=== PATIENT | female | born 1975 | race Caucasian/White ===

== ENCOUNTER 2017-02-04 11:30 | Outpatient (CLI) | payer OTHER ==
[~2017-02-04] VITALS: Ht 162.6 cm; Wt 65.8 kg
[2017-02-04] MEDS ORDERED: PANT40TA2 PO (11:37)
[2017-02-04] MEDS ORDERED: SUCR1TAB36 PO (11:37)
== END 2017-02-04 13:01 ==
LOC: PREOP 11:30
PROVIDERS: ATTEND Surgery
DX: Z01.818 Encounter for other preprocedural examination (principal); R10.13 Epigastric pain; R11.10 Vomiting, unspecified

== ENCOUNTER 2017-02-08 09:33 | Day surgery (SDC) | payer OTHER ==
[~2017-02-08] VITALS: Ht 162.6 cm; Wt 65.8 kg
[~2017-02-08 09:33] MED LIST: PANT40TA2 PO; SUCR1TAB36 PO
[2017-02-08] MEDS ORDERED: NS IV 500 ML 500 ML IV ONE (09:45)
[2017-02-08] MEDS ORDERED: NS IV 500 ML 500 ML ONE (09:55)
--- NOTE | 2017-02-08 10:01 | History & Physicial ---
History of Present Illness History of Present Illness Reason for visit/HPI to undergo an upper endoscopy regarding epigastric pain and vomiting. Date of Admission Date Seen by Provider: Feb 08, 2017 Time Seen by Provider: 09:59 I consulted on this patient on 02/08/17 09:59 Attending Physician Alexx Ferreira MD Admitting Physician Delfino Morales MD Consult Allergies and Home Medications Allergies Coded Allergies: Sulfa (Sulfonamide Antibiotics) (Verified Allergy, Unknown, ANAPHYLAXIS, ) promethazine (Verified Adverse Reaction, Unknown, 02/08/17) Home Medications Pantoprazole Sodium 40 Mg Tablet.dr, 40 MG PO DAILY, (Reported) Sucralfate 1 Gm Tablet, 1 GM PO ACHS, (Reported) Past Ygcebcl-Jcrhdt-Jjfokg Hx Patient Social History Marrital Status: Employed/Student: employed Smoking Status: Never a Smoker Recent Foreign Travel: No Contact w/other who traveled: No Recent Hopitalizations: No Seasonal Allergies Seasonal Allergies: Yes Surgeries HX Surgeries: Yes Surgeries: Tubal Ligation Respiratory Hx Respiratory Disorders: No Cardiovascular Hx Cardiovascular Disorders: No Neurological Hx Neurological Disorders: No Reproductive System Hx Reproductive Disorders: No Sexually Transmitted Disease: No Genitourinary Hx Genitourinary Disorders: No Gastrointestinal Hx Gastrointestinal Disorders: Yes (n/v) Gastrointestinal Disorders: Gastroesophageal Reflux Musculoskeletal Hx Musculoskeletal Disorders: No Endocrine Hx Endocrine Disorders: No HEENT HX ENT Disorders: No Cancer Hx Cancer: No Psychosocial Hx Psychiatric Problems: No Integumentary HX Skin/Integumentary Disorder: No Blood Transfusions Hx Blood Disorders: No Constitutional: no symptoms reported EENTM: no symptoms reported Respiratory: no symptoms reported Cardiovascular: no symptoms reported Gastrointestinal: abdominal pain (RUQ), nausea, vomiting Genitourinary: no symptoms reported Musculoskeletal: no symptoms reported Skin: no symptoms reported Psychiatric/Neurological: No Symptoms Reported Physical Exam Vital Signs Capillary Refill : General Appearance: No Apparent Distress HEENT: Normal ENT Inspection Neck: Normal Inspection Respiratory: Lungs Clear Cardiovascular: Regular Rate, Rhythm Gastrointestinal: Non Tender, Soft Extremity: Normal Inspection Neurologic/Psychiatric: Alert, Oriented x3 Skin: Warm/Dry Assessment/Plan Assessment and Plan lady with epigastric pain. Gastritis versus peptic ulcers. Upper endoscopy reasonable and will proceed. Problems: ALEXX FERREIRA MD Feb 08, 2017 10:01 am
--- NOTE | 2017-02-08 10:01 | Conscious Sedation/ASA ---
Conscious Sedation Pre-Proced Time Reviewed: 10:01 ASA Class: 2 Airway Mallampati Classification: ([place] appropriate class) I. II. III, IV Lungs Heart ASA score ASA 1: a normal healthy patient ASA 2: a patient with a mild systemic disease (mid diabetes, controlled hypertension, obesity ASA 3: a patient with a severe systemic disease that limits activity (angina , COPD, prior Myocardial infarction) ASA 4: a patient with an incapacitating disease that is a constant threat to life (CHF, renal failure) ASA 5: a moribund patient not expected to survive 24 hrs. (ruptured aneurysm) ASA 6: a declared brain patient whose organs are being harvested. For emergent operations, add the letter E after the classification Grade 1 Sedation Plan: Discussed options with patient/fam Note The patient is an appropriate candidate to undergo the planned procedure, sedation, and anesthesia. The patient immediately re-assessed prior to indication. ALEXX FERREIRA MD Feb 08, 2017 10:01 am
[2017-02-08 10:15] VITALS: BP 110/81
[2017-02-08] MEDS ORDERED: HURRICAINE EXT TUBE (BENZOCAINE) ONE (10:32)
[2017-02-08] MEDS ORDERED: fentaNYL INJECTION 100 MCG/2 ML AMP ONE (10:32)
[2017-02-08] MEDS ORDERED: MIDAZOLAM 2 MG/2 ML (VERSED) VIAL ONE ×4 (10:32)
[2017-02-08] MEDS: fentaNYL INJECTION 100 MCG/2 ML AMP IVP PRN ×2 (10:39→10:41)
[2017-02-08] MEDS: MIDAZOLAM 2 MG/2 ML (VERSED) VIAL IVP PRN ×3 (10:40→10:44)
--- NOTE | 2017-02-08 10:56 | Endo Procedure Record ---
Endo Procedure Report Date of Procedure Feb 08, 2017 Surgeon (s) ALEXX FERREIRA MD Post Procedure/Op Diagnosis 1.esophageal stricture 2. Multiple gastric ulcers Procedure Performed EGD with antral biopsy Balloon dilatation of esophageal stricture Description of Procedure Anesthesia Type: Conscious Sedation Specimen(s) collected/removed antral mucosa Description of the Procedure Indication for procedure:This lady came in for an upper endoscopy to evaluate ongoing symptoms of reflux with epigastric pain and intermittent dysphagia.informed consent was obtained after reviewing the procedure in detail. Description of the procedure:She was placed in left lateral decubitus position and her vital signs were monitored. Conscious sedation was achieved using Versed and fentanyl. The flexible gastroscope was then introduced down the esophagus, past the stomach, into the proximal duodenum. Findings: 1. Esophagus: Concentric, peptic stricture at the distal end with a short hiatal hernia. The stricture was dilated to 20 mm with the balloon 2. Multiple chronic gastric ulcers. These occupied the distal end of the stomach along the greater curvature and the antrum. Biopsy for H. pylori was obtained. 3. Duodenum: normal She tolerated the procedure well and was taken back to the nursing area in a stable condition. Impression: Symptoms of reflux disease. Peptic esophageal stricture and gastric ulcers. Balloon dilatation completed. Helicobacter status pending. Copies To: MEJIA ELLIS MD, XAVIER M MD Feb 08, 2017 10:56 am
--- NOTE | 2017-02-08 10:58 | Discharge Inst-Simple/Standard ---
Discharge Inst-Standard Discharge Medications New, Converted or Re-Newed RX: Other Patient Instructions/Follow Up Plan of Care/Instructions/FU: to increase Protonix to twice a day. Please schedule a gallbladder ultrasound as an outpatient. Activity as Tolerated: Yes Discharge Diet: No Restrictions ALEXX FERREIRA MD Feb 08, 2017 10:58 am
[2017-02-08] MEDS ORDERED: HURRICAINE EXT TUBE (BENZOCAINE) XX ONE (11:00)
[2017-02-08 11:20] VITALS: BP 100/64
[2017-02-08 11:50] VITALS: BP 104/82
[2017-02-08 12:30] VITALS: BP 104/82
== END 2017-02-08 12:30 | disposition home or self-care (01) ==
LOC: ENDO 09:33
PROVIDERS: ATTEND Surgery
DX: K22.2 Esophageal obstruction (principal); K25.9 Gastric ulcer, unspecified as acute or chronic, without hemorrhage or perforation; K44.9 Diaphragmatic hernia without obstruction or gangrene; K21.9 Gastro-esophageal reflux disease without esophagitis
CPT/HCPCS: 84703

== ENCOUNTER → 2017-02-15 | Outpatient (CLI) | payer OTHER ==
--- NOTE | 2017-02-15 08:34 | Diagnostic Imaging Report ---
PROCEDURE: US Gallbladder. TECHNIQUE: Multiple real-time grayscale images were obtained over the right upper quadrant in various projections. INDICATION: Abdominal pain COMPARISON: None FINDINGS: There is a 3.4 cm septated cyst in the right lobe of the liver and there is a 2.5 cm cyst in left lobe of the liver. No solid hepatic masses are suspected. The common bile duct is not seen, however, no gross biliary dilatation is suspected. Gallbladder appears unremarkable. The pancreas is not well demonstrated. The right kidney measures 13 cm in length and appears normal. There is no ascites or sonographic Gonzalez sign. IMPRESSION: 1. Hepatic cysts 2. No additional abnormality is seen. Limited visualization of the common bile duct and pancreas. Dictated by: Dictated on workstation # [id number]
== END ==
LOC: RAD 07:00
PROVIDERS: ATTEND Surgery
DX: R10.11 Right upper quadrant pain (principal); K76.89 Other specified diseases of liver
CPT/HCPCS: 76705

== ENCOUNTER 2017-03-19 12:27 | Observation (INO) | payer OTHER ==
[~2017-03-19] VITALS: Ht 162.6 cm; Wt 69.5 kg
[2017-03-19] MEDS ORDERED: IBUPROFEN 800 MG (MOTRIN) TAB PO ONE (13:00)
--- NOTE | 2017-03-19 13:05 | ED General ---
General Chief Complaint: General Problems/Pain Stated Complaint: SWOLLEN LYMPH GLANDS/YUEN/JAW PAIN Nursing Triage Note: PT STATES SHE STARTED FEELING BAD LAST SAT. COMPLAINS OF NECK AND LOWER POST HEAD PAIN WITH ENLARGED LYMPH NODES. SEEN [facility] ON WEDNESDAY AND HAD A NEG MON AND STREP. CALLED 'S OFFICE TODAY WHO TOLD HER TO GO TO THE ER. 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 Starting last week she had swelling to the lymph nodes on the bottom side of her chin. This was followed by a terribly sore throat and painful swallowing. She saw Dr. Ellis yesterday who did a rapid strep test and a monotest both of which were negative. Patient's fevers continued to be up to 103, complains of headache, posterior neck pain, sore throat, "lungs hurt" nonproductive cough, "kidneys hurt". She called Dr. Ellis today who referred her to the emergency room. Timing/Duration: 1 Week Severity: Moderate Associated Systoms: Cough, Fever/Chills, Headaches, Malaise, No Nausea/Vomiting , Weakness Allergies and Home Medications Allergies Coded Allergies: Sulfa (Sulfonamide Antibiotics) (Verified Allergy, Unknown, ANAPHYLAXIS, ) promethazine (Verified Adverse Reaction, Unknown, 03/19/17) Home Medications Hydrocodone/Acetaminophen 1 Each Tablet, 1 TAB PO Q4H PRN for PAIN-MODERATE, # 15 Ref 0 Prescribed by: GABRIEL GOMEZ on 03/21/17 1052 Pantoprazole Sodium 40 Mg Tablet., 40 MG PO DAILY, (Reported) Constitutional: see HPI, chills, fever, malaise EENTM: see HPI, throat pain Respiratory: see HPI, cough Cardiovascular: no symptoms reported Genitourinary: no symptoms reported Musculoskeletal: no symptoms reported Skin: no symptoms reported Psychiatric/Neurological: No Symptoms Reported Past Mhmfckm-Clxhdg-Iisowj Hx Patient Social History Alcohol Use: Occasionally Uses Recreational Drug Use: No Smoking Status: Never a Smoker Recent Foreign Travel: No Contact w/Someone Who Travel: No Recent Infectious Disease Expo: No Recent Hopitalizations: No Seasonal Allergies Seasonal Allergies: Yes Surgeries History of Surgeries: Yes Surgeries: Tubal Ligation Respiratory History of Respiratory Disorde: No Cardiovascular History of Cardiac Disorders: No Neurological History of Neurological Disord: No Reproductive System Hx Reproductive Disorders: No Sexually Transmitted Disease: No Genitourinary History of Genitourinary Disor: No Gastrointestinal Gastrointestinal Disorders: Gastroesophageal Reflux, Ulcer Musculoskeletal History of Musculoskeletal Dis: No Endocrine History of Endocrine Disorders: No HEENT History of HEENT Disorders: No Cancer History of Cancer: No Psychosocial History of Psychiatric Problem: No Integumentary History of Skin or Integumenta: No Blood Transfusions History of Blood Disorders: No Physical Exam Vital Signs Vital Sign - Last 12Hours 03/19/17 03/19/17 12:46 16:45 Temp 101.3 Pulse 121 Resp 18 B/P (MAP) 130/89 Pulse Ox 97 O2 Delivery Room Air Capillary Refill : Less Than 3 Seconds General Appearance: No Apparent Distress, WD/WN Eyes: Bilateral Eye Normal Inspection, Bilateral Eye PERRL, Bilateral Eye EOMI HEENT: PERRL/EOMI, TMs Normal, No Tonsillar Exudate, Other (tympanic membranes are normal in appearance. However there is significant erythema of the oropharynx.) Neck: Full Range of Motion, Normal Inspection, Lymphadenopathy (L), Lymphadenopathy (R) Respiratory: Lungs Clear, Normal Breath Sounds, No Accessory Muscle Use, No Respiratory Distress Cardiovascular: Regular Rate, Rhythm, Normal Peripheral Pulses Gastrointestinal: Normal Bowel Sounds, Non Tender, Soft Extremity: Normal Capillary Refill, Normal Inspection Neurologic/Psychiatric: Alert, Oriented x3, No Motor/Sensory Deficits, Other ( nuchal rigidity) Skin: Normal Color, Warm/Dry Comments She does not request pain medication but does appear to be uncomfortable. Focused Exam Evaluation Lactate Level Laboratory Tests 03/19/17 13:50: Lactic Acid Level 0.84 Lactic Acid Level Progress/Results/Core Measures Results/Orders Lab Results Laboratory Tests Test 03/21/17 05:15 Range/Units White Blood Count 7.7 4.3-11.0 10^3/uL Red Blood Count 3.53 L 4.35-5.85 10^6/uL Hemoglobin 10.0 L 11.5-16.0 G/DL Hematocrit 31 L 35-52 % Mean Corpuscular Volume 88 80-99 FL Mean Corpuscular Hemoglobin 28 25-34 PG Mean Corpuscular Hemoglobin Concent 32 32-36 G/DL Red Cell Distribution Width 13.5 10.0-14.5 % Platelet Count 290 130-400 10^3/uL Mean Platelet Volume 10.2 7.4-10.4 FL Sodium Level 141 135-145 MMOL/L Potassium Level 4.1 3.6-5.0 MMOL/L Chloride Level 112 H 98-107 MMOL/L Carbon Dioxide Level 20 L 21-32 MMOL/L Anion Gap 9 5-14 MMOL/L Blood Urea Nitrogen 4 L 7-18 MG/DL Creatinine 0.63 0.60-1.30 MG/DL Estimat Glomerular Filtration Rate > 60 BUN/Creatinine Ratio 6 Glucose Level 100 70-105 MG/DL Calcium Level 8.5 8.5-10.1 MG/DL Total Bilirubin 0.1 0.1-1.0 MG/DL Aspartate Amino Transf (AST/SGOT) 27 5-34 U/L Alanine Aminotransferase (ALT/SGPT) 53 0-55 U/L Alkaline Phosphatase 75 40-136 U/L Total Protein 6.2 L 6.4-8.2 GM/DL Albumin 3.1 L 3.2-4.5 GM/DL Micro Results My Orders Medications Given in ED Vital Signs/I&O Blood Pressure Mean: 103 Diagnostic Imaging Diagonstic Imaging: CT Comments NAME: [facility] REC#: [id number] PT STATUS: REG ER : 1975 PHYSICIAN: CHRISTIANNE SCHROEDER APRN ADMIT DATE: 03/19/17/ER Draft Date of Exam:03/19/17 CT HEAD WO PROCEDURE: CT head without contrast. TECHNIQUE: Multiple contiguous axial images were obtained through the brain without the use of intravenous contrast. INDICATION: Headache. FINDINGS: Noncontrasted images show the ventricles and cortical gyral pattern to be normal. There is no intracranial hemorrhage. No mass effect or extra-axial fluid collection. Basal cisterns are clear. CP angles appear normal. Mastoid air cells are well-aerated and clear. Paranasal sinuses are clear. No bony lesion. IMPRESSION: Normal CT scan of the head without contrast. Dictated on workstation # [id number] Dict: 03/19/17 1417 Trans: 03/19/17 1422 [facility] [id number] Interpreted by: BETSY GILLIAM MD Electronically signed by: Departure Communication (Admissions) Time/Spoke to Admitting Phy: 17:05 Communication I discussed the case with Dr. Gomez. She most graciously agrees to admit the patient, repeat labs in the morning and discharged to home if labs are stable. This is the patient's preference. Progress Notes 1603--Abner Rangel [employer] here and has collected CSF which was clear, opening pressure [id number] Impression Impression: Primary Impression: Pharyngitis Additional Impressions: Lymphadenopathy Headache Disposition: ADMITTED INPATIENT Condition: Stable Admissions Decision to Admit Reason: Admit from ER (General) Decision to Admit/Date: Mar 19, 2017 Time/Decision to Admit Time: 16:50 Departure-Patient Inst. Decision time for Depature: 16:36 Referrals: MEJIA ELLIS MD (PCP/Family) Primary Care Physician Patient Instructions: Sore Throat in Adults Scripts Hydrocodone/Acetaminophen (Hydrocodon -Acetaminophen 5-325) 1 Each Tablet 1 TAB PO Q4H Y for PAIN-MODERATE, #15 TAB 0 Refills Prov: GABRIEL GOMEZ MD 03/21/17 CHRISTIANNE SCHROEDER APRN Mar 19, 2017 13:05
[2017-03-19] MEDS ORDERED: NS IV 1000 ML 1,000 ML IV SCH (13:15)
[2017-03-19 13:45] LABS: BILIRUBIN,URINE NEGATIVE (NEGATIVE); KETONES,URINE NEGATIVE (NEGATIVE); LEUKOCYTE ESTERASE ,URINE 3+ (NEGATIVE); NITRITE,URINE NEGATIVE (NEGATIVE); PH,URINE 7 (5-9); PROTEIN,URINE 2+ (NEGATIVE); UROBILINOGEN,URINE 8 MG/DL (NORMAL)
[2017-03-19] MEDS ORDERED: fentaNYL INJECTION 100 MCG/2 ML AMP IVP ONE (13:45)
[2017-03-19 13:53] LABS: SQUAMOUS EPITHELIAL CELL,UR 25-50 /HPF
[2017-03-19 14:01] LABS: BASOPHILS % (AUTO) 0 % (0-10); EOSINOPHILS % (AUTO) 0 % (0-10); LYMPHOCYTES # (AUTO) 1.1 X 10^3 (1.0-4.0); LYMPHOCYTES % (AUTO) 10 % (12-44); MEAN CORPUSCULAR HEMOGLOBIN 29 PG (25-34); MEAN CORPUSCULAR HGB CONC 33 G/DL (32-36); MEAN CORPUSCULAR VOLUME 87 FL (80-99); MONOCYTES % (AUTO) 9 % (0-12); NEUTROPHILS # (AUTO) 8.5 X 10^3 (1.8-7.8); NEUTROPHILS % (AUTO) 81 % (42-75); PLATELET COUNT 250 10^3/uL (130-400); RED BLOOD COUNT 3.68 10^6/uL (4.35-5.85); RED CELL DISTRIBUTION WIDTH 13.3 % (10.0-14.5); WHITE BLOOD COUNT 10.6 10^3/uL (4.3-11.0)
--- NOTE | 2017-03-19 14:22 | Diagnostic Imaging Report ---
PROCEDURE: CT head without contrast. TECHNIQUE: Multiple contiguous axial images were obtained through the brain without the use of intravenous contrast. INDICATION: Headache. FINDINGS: Noncontrasted images show the ventricles and cortical gyral pattern to be normal. There is no intracranial hemorrhage. No mass effect or extra-axial fluid collection. Basal cisterns are clear. CP angles appear normal. Mastoid air cells are well-aerated and clear. Paranasal sinuses are clear. No bony lesion. IMPRESSION: Normal CT scan of the head without contrast. Dictated by: Dictated on workstation # [id number]
[2017-03-19 14:27] LABS: ERYTHROCYTE SEDIMENTATION RATE 81 MM/HR (0-20)
[2017-03-19] MEDS ORDERED: morphine INJ 10 MG/ML 1ML (SYR OR VIAL) IVP ONE ×2 (14:45→16:15)
[2017-03-19 15:00] LABS: ALANINE AMINOTRANSFERASE 56 U/L (0-55); ALBUMIN 3.4 GM/DL (3.2-4.5); ANION GAP 12 MMOL/L (5-14); ASPARTATE AMINO TRANSFERASE 33 U/L (5-34); BILIRUBIN,TOTAL 0.4 MG/DL (0.1-1.0); BLOOD UREA NITROGEN 6 MG/DL (7-18); BUN/CREATININE RATIO 10; CALCIUM 8.3 MG/DL (8.5-10.1); CARBON DIOXIDE 17 MMOL/L (21-32); CHLORIDE 109 MMOL/L (98-107); CREATININE SERUM 0.62 MG/DL (0.60-1.30); GFR ESTIMATED > 60; GLUCOSE 95 MG/DL (70-105); POTASSIUM 3.2 MMOL/L (3.6-5.0); SODIUM 138 MMOL/L (135-145); TOTAL PROTEIN 6.9 GM/DL (6.4-8.2)
--- NOTE | 2017-03-19 16:11 | Anesthesia-Procedure Note ---
Procedure Start/Stop Time Date of Procedure: Mar 19, 2017 Start Time: 15:40 Stop Time: 16:00 Postprocedural Diagnosis: headache Procedures/Interventions Discussed Risk,Benefits: Yes Patient Consents: Yes Position: Lying, Left Sterile Technique: Yes Opening Pressure: 21 Fluid Color: clear Spinal Needle Used: 22g Calderon 3 1/2 inch Procedure Notes subarachnoid space id'd with positive clear csf return x 1 attempt. opening pressure 21. specimen collected. pt tolerated procedure well CLEMENTINA HENRIQUEZ CRNA Mar 19, 2017 16:11
[2017-03-19 16:33] LABS: APPEARANCE,CSF CLEAR; COLOR,CSF COLORLESS; WHITE BLOOD CELL,CSF 1 CELLS (0-5)
[2017-03-19 16:41] LABS: CSF GLUCOSE 62 MG/DL (50-80); CSF TOTAL PROTEIN 22 MG/DL (15-40)
[2017-03-19] MEDS ORDERED: cefTRIAXone INJECTION 1,000 MG in NS (IVPB) 50 ML IV ONE (16:45)
[2017-03-19] MEDS ORDERED: DEXAMETHASONE PF 10 MG/ML (DECADRON) VIAL IV ONE (17:00)
--- NOTE | 2017-03-19 17:25 | Diagnostic Imaging Report ---
CLINICAL INDICATION: Patient with cough and fever x2 days. EXAMINATION: Chest x-ray PA and lateral views. COMPARISONS: None. FINDINGS: Lungs/pleura: There is mild discoid atelectasis in right midlung field. There is mild patchy airspace opacities in left lung base, which may represent atelectasis versus infiltrate. Otherwise, lungs are clear. There is no pneumothorax. There is no pleural effusion. Mediastinum: Unremarkable. Pulmonary vasculature: Unremarkable. Heart: Unremarkable. Bones/extrathoracic soft tissue: Unremarkable. IMPRESSION: 1: There is mild patchy airspace opacity in left lung base which likely represents atelectasis, but underlying infiltrate cannot be completely excluded. 2: Mild discoid atelectasis in right midlung field. Dictated by: Dictated on workstation # [id number]
[2017-03-19] MEDS ORDERED: DEXAMETHASONE 10 MG/ML (DECADRON) 1 ML VIAL ONE (17:32)
[2017-03-19] MEDS ORDERED: DEXAMETHASONE 10 MG/ML (DECADRON) 1 ML VIAL IV ONE (17:45)
[2017-03-19 17:50] VITALS: BP 102/67
[2017-03-19] MEDS ORDERED: IBUPROFEN 600 MG (MOTRIN) TAB PO PRN (18:30)
[2017-03-19] MEDS ORDERED: ONDANSETRON 4 MG/2 ML (SDV) Z0FRAN IVP PRN (18:30)
[2017-03-19] MEDS ORDERED: NS W/KCL 40 MEQ/L 1,000 ML IV SCH (18:30)
[2017-03-19] MEDS ORDERED: ACETAMINOPHEN 500 MG TAB (TYLENOL) PO PRN (18:30)
[2017-03-19] MEDS ORDERED: HYDROcodone/APAP 5 MG/325 MG (LORTAB) TAB PO PRN (18:45)
[2017-03-19] MEDS ORDERED: ONDANSETRON 4 MG/2 ML (SDV) Z0FRAN IV PRN (19:00)
[2017-03-19 19:50] VITALS: BP 108/71
[2017-03-19] MEDS: NS W/KCL 40 MEQ/L 1,000 ML IV SCH (20:09)
[2017-03-19] MEDS: HYDROcodone/APAP 5 MG/325 MG (LORTAB) TAB PO PRN (20:11)
[2017-03-19] MEDS: ACETAMINOPHEN 325 MG TABLET/CAPLET (TYLENOL) PO PRN (20:12)
[2017-03-20] VITALS: BP 88/61
[2017-03-20] MEDS: ACETAMINOPHEN 325 MG TABLET/CAPLET (TYLENOL) PO PRN (03:25)
[2017-03-20] MEDS: NS W/KCL 40 MEQ/L 1,000 ML IV SCH ×3 (03:26→20:47)
[2017-03-20 04:00] VITALS: BP 92/62
[2017-03-20 07:45] LABS: MEAN PLATELET VOLUME 10.1 FL (7.4-10.4); RED BLOOD COUNT 3.92 10^6/uL (4.35-5.85); RED CELL DISTRIBUTION WIDTH 13.3 % (10.0-14.5); WHITE BLOOD COUNT 8.4 10^3/uL (4.3-11.0)
[2017-03-20 08:00] VITALS: BP 84/54
[2017-03-20 08:03] LABS: ALANINE AMINOTRANSFERASE 56 U/L (0-55); ALBUMIN 3.4 GM/DL (3.2-4.5); ANION GAP 6 MMOL/L (5-14); ASPARTATE AMINO TRANSFERASE 27 U/L (5-34); BILIRUBIN,TOTAL 0.3 MG/DL (0.1-1.0); BLOOD UREA NITROGEN 5 MG/DL (7-18); BUN/CREATININE RATIO 8; CALCIUM 8.8 MG/DL (8.5-10.1); CARBON DIOXIDE 20 MMOL/L (21-32); CHLORIDE 113 MMOL/L (98-107); CREATININE SERUM 0.59 MG/DL (0.60-1.30); GFR ESTIMATED > 60; GLUCOSE 153 MG/DL (70-105); POTASSIUM 4.4 MMOL/L (3.6-5.0); SODIUM 139 MMOL/L (135-145); TOTAL PROTEIN 6.9 GM/DL (6.4-8.2)
[2017-03-20] MEDS: cefTRIAXone INJECTION 1,000 MG in NS (IVPB) 50 ML IV SCH (08:37)
[2017-03-20] MEDS: HYDROcodone/APAP 5 MG/325 MG (LORTAB) TAB PO PRN ×4 (09:12→22:36)
[2017-03-20] MEDS: IBUPROFEN 600 MG (MOTRIN) TAB PO PRN ×2 (10:44→18:19)
--- NOTE | 2017-03-20 11:18 | Diagnostic Imaging Report ---
PROCEDURE: CT neck soft tissue without contrast. TECHNIQUE: Multiple contiguous axial images were obtained through the neck without the use of intravenous contrast. INDICATION: Neck swelling. Sore throat. COMPARISON: None. FINDINGS: Prominent palatine and adenoid tonsils with calcifications consistent with chronic inflammation. Prominent soft tissue at the base of the tongue likely represents enlarged lingual tonsils. The pharyngeal and laryngeal soft tissues are otherwise symmetric. Nonspecific low attenuation subcentimeter nodule in the right thyroid lobe. The major salivary glands are unremarkable. Diffusely prominent but subcentimeter lymph nodes throughout the neck. The left jugulodigastric lymph node measures up to 1.1 cm short axis dimension, borderline enlarged. No evidence of necrotic lymphadenopathy. No mass or fluid collection in the neck on this noncontrast exam. The visualized intracranial contents and skull base are negative. The paranasal sinuses and mastoids are clear where seen. Osseous structures are unremarkable. IMPRESSION: 1. Prominent Waldeyer's ring with calcifications consistent with chronic inflammation. 2. Diffuse prominence of the cervical lymph nodes, without oswaldo lymphadenopathy or evidence of necrotic lymph nodes, are likely reactive. 3. No mass or fluid collection in the neck on this noncontrast exam. Dictated by: Dictated on workstation # [id number]
[2017-03-20 12:00] VITALS: BP 111/76
--- NOTE | 2017-03-20 13:53 | History & Physicial ([facility]) ---
HPI History of Present Illness: 41 yo female presented to ED with several days of illness. She was not feeling well on Wednesday (5 days ago) and noted swollen submandibular glands and had night sweats that night. Wednesday she had a severe occipital headache with photophobia and nausea which has persisted. She also has severe sore throat and has not eaten solid food since Wednesday. She saw Dr. Morales in clinic on and had negative strep screen and mono screen, but she continued to have high fever up to 103 and severe pain which brought her to the ER. Date seen by provider: Mar 20, 2017 Time Seen by Provider: 08:15 Attending Physician Delfino Morales MD PCP Delfino Morales MD Consult Date of Admission Mar 19, 2017 at 5:22 pm Home Medications Home Medications Reviewed patient Home Medication Reconciliation Form Allergies Coded Allergies: Sulfa (Sulfonamide Antibiotics) (Verified Allergy, Unknown, ANAPHYLAXIS, ) promethazine (Verified Adverse Reaction, Unknown, 03/19/17) [id number]-Ovrmhb Hx Patient Social History Alcohol Use: Occasionally Uses Recreational Drug Use: No Smoking Status: Never a Smoker Recent Foreign Travel: No Contact w/other who traveled: No Recent Hopitalizations: No Recent Infectious Disease Expo: No Physical Abuse Screen: No Sexual Abuse: No Past Medical History PMHx: TBI GERD/PUD Geographic tongue SurgHx: BTL Family Medical History Significant Family History: CVA, Hypertension Review of Systems ([facility]) Constitutional: fever, malaise EENTM: throat pain Respiratory: cough Cardiovascular: no symptoms reported Gastrointestinal: loss of appetite, nausea Genitourinary: no symptoms reported Musculoskeletal: muscle pain Skin: no symptoms reported Psychiatric/Neurological: Other (under a lot of stress recently) Reviewed Test Results Reviewed Test Results Lab Laboratory Tests Test 03/19/17 13:19 03/19/17 13:50 03/19/17 14:28 03/19/17 15:55 Range/Units Urine Color YELLOW Urine Clarity SLIGHTLY CLOUDY Urine pH 7 5-9 Urine Specific [place] 1.010 L 1.016-1.022 Urine Protein 2+ H NEGATIVE Urine Glucose (UA) NEGATIVE NEGATIVE Urine Ketones NEGATIVE NEGATIVE Urine Nitrite NEGATIVE NEGATIVE Urine Bilirubin NEGATIVE NEGATIVE Urine Urobilinogen 8 H NORMAL MG/DL Urine Leukocyte Esterase 3+ H NEGATIVE Urine RBC (Auto) 3+ H NEGATIVE Urine RBC 2-5 H /HPF Urine WBC 2-5 /HPF Urine Squamous Epithelial Cells 25-50 H /HPF Urine Crystals NONE /LPF Urine Bacteria LARGE H /HPF Urine Casts NONE /LPF Urine Mucus NEGATIVE /LPF Urine Culture Indicated NO Group A Streptococcus Screen NEGATIVE NEGATIVE White Blood Count 10.6 4.3-11.0 10^3/uL Red Blood Count 3.68 L 4.35-5.85 10^6/uL Hemoglobin 10.5 L 11.5-16.0 G/DL Hematocrit 32 L 35-52 % Mean Corpuscular Volume 87 80-99 FL Mean Corpuscular Hemoglobin 29 25-34 PG Mean Corpuscular Hemoglobin Concent 33 32-36 G/DL Red Cell Distribution Width 13.3 10.0-14.5 % Platelet Count 250 130-400 10^3/uL Mean Platelet Volume 10.0 7.4-10.4 FL Neutrophils (%) (Auto) 81 H 42-75 % Lymphocytes (%) (Auto) 10 L 12-44 % Monocytes (%) (Auto) 9 0-12 % Eosinophils (%) (Auto) 0 0-10 % Basophils (%) (Auto) 0 0-10 % Neutrophils # (Auto) 8.5 H 1.8-7.8 X 10^3 Lymphocytes # (Auto) 1.1 1.0-4.0 X 10^3 Monocytes # (Auto) 1.0 0.0-1.0 X 10^3 Eosinophils # (Auto) 0.0 0.0-0.3 10^3/uL Basophils # (Auto) 0.0 0.0-0.1 10^3/uL Erythrocyte Sedimentation Rate 81 H 0-20 MM/HR Lactic Acid Level 0.84 0.50-2.00 MMOL/L Monoscreen NEGATIVE NEGATIVE Sodium Level 138 135-145 MMOL/L Potassium Level 3.2 L 3.6-5.0 MMOL/L Chloride Level 109 H 98-107 MMOL/L Carbon Dioxide Level 17 L 21-32 MMOL/L Anion Gap 12 5-14 MMOL/L Blood Urea Nitrogen 6 L 7-18 MG/DL Creatinine 0.62 0.60-1.30 MG/DL Estimat Glomerular Filtration Rate > 60 BUN/Creatinine Ratio 10 Glucose Level 95 70-105 MG/DL Calcium Level 8.3 L 8.5-10.1 MG/DL Total Bilirubin 0.4 0.1-1.0 MG/DL Aspartate Amino Transf (AST/SGOT) 33 5-34 U/L Alanine Aminotransferase (ALT/SGPT) 56 H 0-55 U/L Alkaline Phosphatase 90 40-136 U/L C-Reactive Protein High Sensitivity 13.70 H 0.00-0.50 MG/DL Total Protein 6.9 6.4-8.2 GM/DL Albumin 3.4 3.2-4.5 GM/DL CSF Tube Number 4 CSF Appearance CLEAR CSF Color COLORLESS CSF WBC 1 0-5 CELLS CSF RBC 0 0-0 CELLS CSF Lymphocytes % CSF Mononuclear WBCs % CSF Polynuclear WBCs % CSF Glucose 62 50-80 MG/DL CSF Total Protein 22 15-40 MG/DL Test 03/20/17 07:24 Range/Units White Blood Count 8.4 4.3-11.0 10^3/uL Red Blood Count 3.92 L 4.35-5.85 10^6/uL Hemoglobin 11.1 L 11.5-16.0 G/DL Hematocrit 34 L 35-52 % Mean Corpuscular Volume 87 80-99 FL Mean Corpuscular Hemoglobin 28 25-34 PG Mean Corpuscular Hemoglobin Concent 33 32-36 G/DL Red Cell Distribution Width 13.3 10.0-14.5 % Platelet Count 268 130-400 10^3/uL Mean Platelet Volume 10.1 7.4-10.4 FL Sodium Level 139 135-145 MMOL/L Potassium Level 4.4 3.6-5.0 MMOL/L Chloride Level 113 H 98-107 MMOL/L Carbon Dioxide Level 20 L 21-32 MMOL/L Anion Gap 6 5-14 MMOL/L Blood Urea Nitrogen 5 L 7-18 MG/DL Creatinine 0.59 L 0.60-1.30 MG/DL Estimat Glomerular Filtration Rate > 60 BUN/Creatinine Ratio 8 Glucose Level 153 H 70-105 MG/DL Calcium Level 8.8 8.5-10.1 MG/DL Total Bilirubin 0.3 0.1-1.0 MG/DL Aspartate Amino Transf (AST/SGOT) 27 5-34 U/L Alanine Aminotransferase (ALT/SGPT) 56 H 0-55 U/L Alkaline Phosphatase 90 40-136 U/L Total Protein 6.9 6.4-8.2 GM/DL Albumin 3.4 3.2-4.5 GM/DL Radiology CT head 03/19: unremarkable CXR 03/19: IMPRESSION: 1: There is mild patchy airspace opacity in left lung base which likely represents atelectasis, but underlying infiltrate cannot be completely excluded. 2: Mild discoid atelectasis in right midlung field. Physical Exam-([facility]) Physical Exam Vital Signs VS - Last 72 Hours, by Label 03/19/17 03/19/17 03/19/17 03/19/17 12:46 16:45 17:50 19:50 Temp 101.3 97.1 98.1 98.6 Pulse 121 81 95 102 Resp 18 16 18 18 B/P (MAP) 130/89 102/67 108/71 Pulse Ox 97 98 96 94 O2 Delivery Room Air Room Air Room Air 03/19/17 03/20/17 03/20/17 03/20/17 20:15 00:00 04:00 08:00 Temp 96.6 97.2 97.0 Pulse 89 78 70 Resp 18 18 16 B/P (MAP) 88/61 92/62 84/54 Pulse Ox 94 96 96 O2 Delivery Room Air Room Air Room Air Room Air 03/20/17 12:00 Temp 97.4 Pulse 77 Resp 20 B/P (MAP) 111/76 O2 Delivery Room Air Capillary Refill : Less Than 3 Seconds General Appearance: WD/WN, other (appears uncomfortable) HEENT: pharyngeal erythema, No tonsillar exudate Respiratory: lungs clear, normal breath sounds Cardiovascular: regular rate, rhythm, no murmur Gastrointestinal: normal bowel sounds, non tender, soft Extremities: no pedal edema Neurologic/Psychiatric: alert, normal mood/affect Skin: normal color, warm/dry Assessment/Plan Assessment/Plan Admission Dx Fever Intractable headache Sore throat Plan Fever- likely viral syndrome, CSF unremarkable and labs unremarkable. CXR without clear findings of pneumonia -Given severity of fever and symptoms, patient was started on rocephin from ER, will monitor clinical response Intractable headache- CSF unremarkable, PCR pending, CT head unremarkable -Likely due to viral infection, f/u PCR from CSF Sore throat- out of proportion to clinical findings, will check CT to rule out deeper neck pathology DVT ppx- enoxaparin Diagnosis/Problems: Clinical Quality Measures DVT/VTE Risk/Contraindication: Risk Factor Score Per Nursin RFS Level Per Nursing on Admit: 2=Moderate GABRIEL GOMEZ MD Mar 20, 2017 1:53 pm
[2017-03-20] MEDS: ENOXAPARIN 40 MG/0.4 ML (LOVENOX) SYR SC SCH (14:27)
[2017-03-20 16:56] VITALS: BP 111/79
[2017-03-20 20:00] VITALS: BP 110/75
[2017-03-21] VITALS: BP 89/53
[2017-03-21] MEDS: NS W/KCL 40 MEQ/L 1,000 ML IV SCH (04:50)
[2017-03-21] MEDS: IBUPROFEN 600 MG (MOTRIN) TAB PO PRN (04:51)
[2017-03-21 05:47] LABS: MEAN PLATELET VOLUME 10.2 FL (7.4-10.4); RED BLOOD COUNT 3.53 10^6/uL (4.35-5.85); RED CELL DISTRIBUTION WIDTH 13.5 % (10.0-14.5); WHITE BLOOD COUNT 7.7 10^3/uL (4.3-11.0)
[2017-03-21 06:12] LABS: ALANINE AMINOTRANSFERASE 53 U/L (0-55); ALBUMIN 3.1 GM/DL (3.2-4.5); ANION GAP 9 MMOL/L (5-14); ASPARTATE AMINO TRANSFERASE 27 U/L (5-34); BILIRUBIN,TOTAL 0.1 MG/DL (0.1-1.0); BLOOD UREA NITROGEN 4 MG/DL (7-18); BUN/CREATININE RATIO 6; CALCIUM 8.5 MG/DL (8.5-10.1); CARBON DIOXIDE 20 MMOL/L (21-32); CHLORIDE 112 MMOL/L (98-107); CREATININE SERUM 0.63 MG/DL (0.60-1.30); GFR ESTIMATED > 60; GLUCOSE 100 MG/DL (70-105); POTASSIUM 4.1 MMOL/L (3.6-5.0); SODIUM 141 MMOL/L (135-145); TOTAL PROTEIN 6.2 GM/DL (6.4-8.2)
[2017-03-21] MEDS: HYDROcodone/APAP 5 MG/325 MG (LORTAB) TAB PO PRN (07:43)
[2017-03-21 08:17] VITALS: BP 111/74
[2017-03-21] MEDS: cefTRIAXone INJECTION 1,000 MG in NS (IVPB) 50 ML IV SCH (08:28)
[2017-03-21] MEDS ORDERED: HYDR-3812 PO (10:52)
--- NOTE | 2017-03-21 10:53 | Discharge Instructions ---
Discharge [facility] Discharge Medications New, Converted or Re-Newed RX: RX on Chart New Medications: Hydrocodone/Acetaminophen (Hydrocodon -Acetaminophen 5-325) 1 Each Tablet 1 TAB PO Q4H PRN for PAIN-MODERATE, #15 TAB 0 Refills Continued Medications: Pantoprazole Sodium (Protonix) 40 Mg Tablet. 40 MG PO DAILY, TAB Patient Instructions Goal/Follow Up Appt: Follow up with Dr. Ellis early this week. Return to The [facility] For: Fever, dizziness, inability to keep down liquids Activity & Diet Discharge Diet: Regular Diet Activity as Tolerated: Yes Copy Copies To 1: MEJIA ELLIS MD, BETHANY N MD Mar 21, 2017 10:53
[2017-03-21] MEDS ORDERED: diphenhydrAMINE 50 MG/ML INJ (BENADRYL) IVP ONE (11:00)
[2017-03-21] MEDS ORDERED: KETOROLAC 30 MG/ML VIAL IVP ONE (11:00)
[2017-03-21] MEDS: ENOXAPARIN 40 MG/0.4 ML (LOVENOX) SYR SC SCH (14:00)
[2017-03-21 16:28] VITALS: BP 100/67
--- NOTE | 2017-03-21 20:42 | Discharge Summary ---
Diagnosis/Chief Complaint Date of Admission Mar 19, 2017 at 5:22 pm Date of Discharge Mar 21, 2017 at 5:59 pm Admission Diagnosis Admission Diagnosis Fever Intractable headache Sore throat Discharge Diagnosis Fever- likely viral syndrome, CSF unremarkable and labs unremarkable. CXR without clear findings of pneumonia -Given severity of fever and symptoms, patient was started on rocephin from ER, will monitor clinical response No antibiotics on d/c, no evidence of bacterial infection found Intractable headache- CSF unremarkable, PCR pending, CT head unremarkable -Likely due to viral infection, f/u PCR from CSF- still pending at d/c Sore throat- out of proportion to clinical findings, CT neck obtained with calcifications showing chronic inflammation in tonsils and generalized mildly enlarged lymph nodes, no abscess Chief Complaint/HPI Chief Complaint/HPI 41 yo female presented to ED with several days of illness. She was not feeling well on Wednesday (5 days ago) and noted swollen submandibular glands and had night sweats that night. Wednesday she had a severe occipital headache with photophobia and nausea which has persisted. She also has severe sore throat and has not eaten solid food since Wednesday. She saw Dr. Ellis in clinic on and had negative strep screen and mono screen, but she continued to have high fever up to 103 and severe pain which brought her to the ER. Discharge Summary-Simple/Stand Consultations Discharge Physical Examination Allergies: Coded Allergies: Sulfa (Sulfonamide Antibiotics) (Verified Allergy, Unknown, ANAPHYLAXIS, ) promethazine (Verified Adverse Reaction, Unknown, 03/19/17) Vitals & I&Os Vital Sign - Last 12Hours Date Time Temp Pulse Resp B/P (MAP) Pulse Ox O2 Delivery O2 Flow Rate FiO2 03/21/17 18:01 03/21/17 16:28 98.6 79 20 97 Room Air Intake and Output 03/22/17 00:00 Intake Total 1000 ml Output Total 2000 ml Balance -1000 ml General Appearance: Alert, No Acute Distress Respiratory: Clear to Auscultation, Normal Air Movement Cardiovascular: Regular Rate, No Murmurs Neuro: Normal Speech Psych/Mental Status: Mental Status NL Hospital Course See final discharge diagnosis. Labs Laboratory Tests Test 03/20/17 07:24 03/21/17 05:15 Range/Units White Blood Count 8.4 7.7 4.3-11.0 10^3/uL Red Blood Count 3.92 L 3.53 L 4.35-5.85 10^6/uL Hemoglobin 11.1 L 10.0 L 11.5-16.0 G/DL Hematocrit 34 L 31 L 35-52 % Mean Corpuscular Volume 87 88 80-99 FL Mean Corpuscular Hemoglobin 28 28 25-34 PG Mean Corpuscular Hemoglobin Concent 33 32 32-36 G/DL Red Cell Distribution Width 13.3 13.5 10.0-14.5 % Platelet Count 268 290 130-400 10^3/uL Mean Platelet Volume 10.1 10.2 7.4-10.4 FL Sodium Level 139 141 135-145 MMOL/L Potassium Level 4.4 4.1 3.6-5.0 MMOL/L Chloride Level 113 H 112 H 98-107 MMOL/L Carbon Dioxide Level 20 L 20 L 21-32 MMOL/L Anion Gap 6 9 5-14 MMOL/L Blood Urea Nitrogen 5 L 4 L 7-18 MG/DL Creatinine 0.59 L 0.63 0.60-1.30 MG/DL Estimat Glomerular Filtration Rate > 60 > 60 BUN/Creatinine Ratio 8 6 Glucose Level 153 H 100 70-105 MG/DL Calcium Level 8.8 8.5 8.5-10.1 MG/DL Total Bilirubin 0.3 0.1 0.1-1.0 MG/DL Aspartate Amino Transf (AST/SGOT) 27 27 5-34 U/L Alanine Aminotransferase (ALT/SGPT) 56 H 53 0-55 U/L Alkaline Phosphatase 90 75 40-136 U/L Total Protein 6.9 6.2 L 6.4-8.2 GM/DL Albumin 3.4 3.1 L 3.2-4.5 GM/DL Pending Labs CSF HSV and WNV testing Radiology Reviewed CT head 03/19: unremarkable CXR 03/19: IMPRESSION: 1: There is mild patchy airspace opacity in left lung base which likely represents atelectasis, but underlying infiltrate cannot be completely excluded. 2: Mild discoid atelectasis in right midlung field. Discharge Instructions to patient/family Please see electronic discharge instructions given to patient. Discharge Medications Reviewed and agree with Discharge Medication list on patient's Discharge Instruction sheet Clinical Quality Measures DVT/VTE Risk/Contraindication: Risk Factor Score Per Nursin RFS Level Per Nursing on Admit: 2=Moderate Copy Copies To 1: MEJIA ELLIS MD, BETHANY N MD Mar 21, 2017 8:42 pm
[2017-03-22 15:29] LABS: HSV 1 DNA PCR Not Detected (Not Detected)
[2017-03-22 15:30] LABS: HSV 2 DNA PCR Not Detected (Not Detected)
[2017-03-24 08:04] LABS: WNCSFIGGC 0.02 IV (<=1.29); WNCSFIGMC 0.02 IV (<=0.89)
== END 2017-03-21 10:50 | disposition home or self-care (01) ==
LOC: EDUNIT# 12:27 → ER 12:34 → UNDOADMOB 17:22 → 4TH 17:22 → UNDODISOB 03-21 17:59
PROVIDERS: ADMIT Family Medicine; ATTEND Family Medicine
DX: J02.9 Acute pharyngitis, unspecified (principal); R51 Headache; R59.0 Localized enlarged lymph nodes; R50.9 Fever, unspecified; M54.2 Cervicalgia
CPT/HCPCS: 36415; 70450; 70490; 71020; 80053; 81000; 82945; 83605; 84157; 84703; 85025; 85027; 85652; 86141; 86308; 86788; 86789; 87040; 87070; 87205; 87430; 87529; 89051; 96361; 96365; 96375; 96376; G0378

== ENCOUNTER → 2018-03-25 | Outpatient (CLI) | payer OTHER ==
[~2018-03-25] MED LIST changes: +ACHD5005 PO
--- NOTE | 2018-03-25 10:02 | Diagnostic Imaging Report ---
INDICATION: Routine screening. Comparison is made with prior mammogram from 03/14/2015. 2-D and 3-D bilateral screening mammography was performed with Computer Aided Detection (CAD) system. FINDINGS: Scattered fibroglandular densities are identified bilaterally. Small circumscribed nodular density in the inner aspect of left breast posterior depth is noted, not seen on prior exam. This has fairly benign features but additional views and ultrasound recommended for further evaluation. This appears to be posterior aspect of the left breast on the MLO view at the nipple line. No other suspicious densities are seen. No malignant appearing microcalcifications are identified. The axillae are unremarkable. IMPRESSION: Left breast density. Additional views and ultrasound are recommended. ACR BI-RADS Category 0: Incomplete. (Needs additional imaging evaluation). Result letter will be mailed to the patient. Note: At least 10% of breast cancer is not imaged by mammography. Dictated by: Dictated on workstation # [id number]
== END ==
LOC: RAD 08:04
PROVIDERS: ATTEND Family Medicine
DX: Z12.31 Encounter for screening mammogram for malignant neoplasm of breast (principal); R92.8 Other abnormal and inconclusive findings on diagnostic imaging of breast
CPT/HCPCS: 77067

== ENCOUNTER → 2018-04-14 | Outpatient (CLI) | payer OTHER ==
--- NOTE | 2018-04-14 11:49 | Diagnostic Imaging Report ---
Indication: Left breast density. Patient presents for additional views. Correlation is made with recent screening study from 03/25/2018. Unilateral left 2-D and 3-D diagnostic mammography was performed including repeat CC and MLO views as well as spot compression CC, MLO and mediolateral views. There is persistent small circumscribed density in the upper and inner aspect of the left breast posterior depth approximately 6-7 cm from the nipple. This has fairly benign features and may represent a tiny cyst. Further evaluation with ultrasound is recommended. No suspicious calcifications are seen. Impression: BI-RADS 0. Persistent tiny density in the inner left breast at approximately 9 to 10 o'clock location at posterior depth. Further evaluation with ultrasound is recommended. Dictated by: Dictated on workstation # [id number]
--- NOTE | 2018-04-14 12:41 | Diagnostic Imaging Report ---
INDICATION: Left breast density. CORRELATION with diagnostic mammogram earlier the same day. FINDINGS: Sonographic interrogation of the left breast at approximately the 8 to 11 o'clock location was performed. No sonographic abnormality is seen. No solid or cystic mass is detected. IMPRESSION: BI-RADS 3 No sonographic abnormality is identified. The density noted mammographically does have circumscribed margins and appears benign. Even so, followup left mammogram in 6 months is recommended to confirm stability. Dictated by: Dictated on workstation # [id number]
== END ==
LOC: RAD 08:39
PROVIDERS: ATTEND Family Medicine
DX: R92.2 Inconclusive mammogram (principal)
CPT/HCPCS: 76642

== ENCOUNTER → 2018-09-29 | Outpatient (CLI) | payer OTHER ==
--- NOTE | 2018-09-29 19:03 | Diagnostic Imaging Report ---
INDICATION: Pain around the nipple and in the medial left breast. Patient also reports a palpable lump at the 12 o'clock location of the left breast and states that the patient's physician feels a lump in the lateral left breast. COMPARISON: Correlation is made with prior mammogram from 04/14/2018. TECHNIQUE: Unilateral left 2D and 3D diagnostic mammography was performed with computer-aided detection (CAD) system. FINDINGS: Scattered fibroglandular densities are noted. Previously noted circumscribed nodule in the medial and upper left breast posterior depth appears stable and likely owing to benign etiology. BB marker is placed at the 12 o'clock location of the left breast in an area of palpable abnormality. No underlying abnormality is seen. Breast parenchyma is stable. No new mass is seen. No suspicious calcifications are detected. The left axilla is unremarkable. IMPRESSION: Stable left mammogram with no mammographic features suspicious for malignancy. Even so, sonographic interrogation of the areas of palpable lumps in the left breast is recommended and will be performed today. ACR BI-RADS Category 0: Incomplete. (Needs additional imaging evaluation). Result letter will be mailed to the patient. Note: At least 10% of breast cancer is not imaged by mammography. Dictated by: Dictated on workstation # [id number]
--- NOTE | 2018-09-29 19:04 | Diagnostic Imaging Report ---
INDICATION: Breast pain as well as a palpable lump at the 12 o'clock location. Correlation is made with the diagnostic mammogram from earlier the same day. FINDINGS: Sonographic interrogation of all four quadrants of the left breast including the retroareolar region and left axilla was performed. There is a simple cyst at the 4 o'clock location in the left breast 6 cm from the nipple measuring 3 mm x 5 mm. No solid mass is seen. No abnormality at the area of the patient's pain is identified. No abnormality at the 12 o'clock location at the area of palpable lump is identified. Retroareolar region is unremarkable. Left axilla is unremarkable. IMPRESSION: Unremarkable left breast ultrasound with the exception of a tiny simple cyst at the 4 o'clock location. No concerning findings are seen. Patient may return to routine annual screening mammography. ACR BI-RADS Category 2: Benign findings. Dictated by: Dictated on workstation # [id number]
== END ==
LOC: RAD 13:47
PROVIDERS: ATTEND Family Medicine
DX: N63.20 Unspecified lump in the left breast, unspecified quadrant (principal)
CPT/HCPCS: 76641

== ENCOUNTER → 2019-02-14 | Outpatient (CLI) | payer OTHER ==
--- NOTE | 2019-02-14 14:21 | Diagnostic Imaging Report ---
INDICATION: Five days post injury to foot, swelling, pain. TECHNIQUE: Three views of the right foot. CORRELATION STUDY: None. FINDINGS: Interposed between the first and second and second and third tarsometatarsal articulations are thin linear densities, which avulsion fractures are not excluded. Remaining osseous structures are otherwise intact and unremarkable. Mild soft tissue swelling is suggested. IMPRESSION: 1. Question of small avulsion fractures interposed between the first and second and second and third tarsometatarsal articulations. Dictated by: Dictated on workstation # [id number]
--- NOTE | 2019-02-14 16:05 | Diagnostic Imaging Report ---
INDICATION: Injury on 02/09/2019 with swelling. TECHNIQUE: Three views of the right second toe. CORRELATION STUDY: None. FINDINGS: Findings suggest a very small, nondisplaced fracture involving the articular base of the middle phalanx laterally. The alignment is anatomic. The remaining osseous structures are otherwise intact. Mild soft tissue swelling suggested. IMPRESSION: 1. Nondisplaced obliquely oriented fracture at the lateral base of the middle phalanx second toe. Dictated by: Dictated on workstation # [id number]
== END ==
LOC: RAD 08:44
PROVIDERS: ATTEND Family Medicine
DX: S92.524A Nondisplaced fracture of middle phalanx of right lesser toe(s), initial encounter for closed fracture (principal)
CPT/HCPCS: 73630; 73660

== ENCOUNTER 2019-04-04 11:16 | Outpatient (CLI) | payer OTHER ==
[~2019-04-04] VITALS: Ht 162.6 cm; Wt 69.0 kg
[2019-04-04] MEDS ORDERED: MULT-141 PO (12:43)
[2019-04-04] MEDS ORDERED: IBUP-2055 PO (12:43)
[2019-04-04] MEDS ORDERED: MAGN400T39 PO (12:43)
[2019-04-04] MEDS ORDERED: POTA99TA21 PO (12:43)
[2019-04-04] MEDS ORDERED: FERR-84 PO (12:43)
[2019-04-04] MEDS ORDERED: SUCR1TAB PO (12:43)
[2019-04-05] MEDS ORDERED: ACHD5005 PO (11:57)
== END 2019-04-04 13:30 | disposition home or self-care (01) ==
LOC: PREOP 11:16
PROVIDERS: ATTEND Surgery
DX: Z01.818 Encounter for other preprocedural examination (principal)

== ENCOUNTER 2019-04-05 08:26 | Day surgery (SDC) | payer OTHER ==
[~2019-04-05] VITALS: Ht 162.6 cm; Wt 69.0 kg
[2019-04-05] VITALS (14 sets, daily range): BP systolic 103–126; BP diastolic 69–91
[~2019-04-05 08:26] MED LIST changes: +FERR-84 PO; +IBUP-2055 PO; +MAGN400T39 PO; +MULT-141 PO; +POTA99TA21 PO; +SUCR1TAB PO
[2019-04-05] MEDS ORDERED: DEXAMETHASONE 10 MG/ML (DECADRON) 1 ML VIAL ONE (08:53)
[2019-04-05] MEDS ORDERED: LIDOCAINE PF 2% 5 ML (XYLOCAINE) VIAL ONE (08:53)
[2019-04-05] MEDS ORDERED: ROCURONIUM 10 MG/ML 5 ML SYRINGE IV ONE ×2 (08:53→11:31)
[2019-04-05] MEDS ORDERED: SEVOFLURANE (ULTANE) 15 ML INHAL SOLN ONE (08:53)
[2019-04-05] MEDS ORDERED: proPOfol 200 MG/20 ML (DIPRIVAN) VIAL IV ONE (08:53)
[2019-04-05] MEDS ORDERED: MIDAZOLAM 2 MG/2 ML (VERSED) VIAL ONE ×2 (08:53→09:07)
[2019-04-05] MEDS ORDERED: ONDANSETRON 4 MG/2 ML (SDV) Z0FRAN ONE ×2 (08:53→14:47)
[2019-04-05] MEDS ORDERED: fentaNYL INJECTION 100 MCG/2 ML AMP ONE (08:53)
[2019-04-05] MEDS ORDERED: LACTATED RINGERS 1,000 ML IV PRN (08:54)
[2019-04-05] MEDS ORDERED: FAMOTIDINE 20MG/2ML IV (PEPCID) IVP ONE (09:00)
[2019-04-05] MEDS ORDERED: MIDAZOLAM 2 MG/2 ML (VERSED) VIAL IVP ONE (09:00)
[2019-04-05] MEDS ORDERED: ceFAZolin 2 GM/50 ML NS 50 ML ONE (09:07)
[2019-04-05] MEDS ORDERED: CATHETER FLUSH 10 ML SYR IV PRN (09:30)
[2019-04-05] MEDS ORDERED: BUP/EPI 0.25% 1:200,000 (MARCAINE) 10 ML VIAL IJ ONE (09:52)
[2019-04-05] MEDS ORDERED: IOPAMIDOL 61% 30 ML (ISOVUE 300) VIAL IV ONE (09:52)
[2019-04-05] MEDS ORDERED: SUCCINYLCHOLINE INJ 100 MG/5 ML SYR ONE (11:00)
[2019-04-05] MEDS: ceFAZolin 2 GM/50 ML NS 50 ML IV ONE ×2 (11:09→11:13)
[2019-04-05] MEDS ORDERED: PHENYLEPHRINE 100 MCG/ML 10 ML (ANESTHESIA) SYR ONE (11:31)
[2019-04-05] MEDS ORDERED: SUGAMMADEX 500 MG/5 ML VIAL (BRIDION) IV ONE (11:50)
[2019-04-05] MEDS ORDERED: KETOROLAC 30 MG/ML VIAL ONE (11:53)
[2019-04-05] MEDS ORDERED: HYDROmorphone 2 MG/ML VIAL (DILAUDID) ONE (11:55)
--- NOTE | 2019-04-05 11:56 | Progress Note-Post Operative ---
Post-Operative Progess Note Surgeon (s)/Cadd Technician (s) Surgeon BETSY JIMENEZ DO Cadd Technician: Ap Pre-Operative Diagnosis sludge Post-Operative Diagnosis Cholelithiasis/Cholecystitis Procedure & Operative Findings Date of Procedure 04/05/19 Procedure Performed/Findings Lap jailene with IOC Anesthesia Type GET Estimated Blood Loss Estimated blood loss (mL): scant Specimens/Packing Specimens Removed GB and contents BETSY JIMENEZ DO Apr 05, 2019 11:56
[2019-04-05] MEDS ORDERED: ACHD5005 PO (11:57)
--- NOTE | 2019-04-05 11:58 | Discharge Inst-Surgical ---
Discharge Inst-Surgical Reconcile Patient Problems Problems Reviewed?: Yes Depart Medication/Instructions New, Converted or Re-Newed RX: RX Given to Pt/Family Patient Instructions Follow up Appt: Make appointment for 1 week. [phone] Instructions: No lifting greater than 20 pounds. No strenuous activity. May shower in 24 hours, no tub bath or soaking. Use incentive spirometer at home as directed. No Smoking Skin/Wound Care: May remove bandages in am. You need to leave the Dermabond on incision it will fall off on it's own. Symptoms to Report: Appetite Changes, Extremity Discoloration, Numbness/Tingling, Swelling Increased, Bleeding Excessive, Eyesight Changes, Pain Increased, Urine Color Change, Constipation(Persistent), Fever over 101 degree F, Pain/Pressure in chest, Urinating Difficulty, Cough Up/Vomit Blood, Heart Beat Irreg/Pounding, Pain/Pressure in jaw, Cramps in feet or legs, Lightheadedness, Pain/Pressure in shoulder, Diarrhea(Persistent), Memory Changes Suddenly, Questions/Concerns, Weight gain consecutive days, Dizziness/Fainting, Nausea/Vomiting, Shortness of Breath, Weight gain over 2 pounds If questions or concerns contact your physician Or seek help at emergency department. Activity Activity as Tolerated: Yes Activity Instructions: Avoid Stress to Incision Driving Instructions: No Driving/Refer to Diet Discharge Diet: Avoid Fatty Foods, Low Fat/Low Cholesterol If Any Problems/Questions/Issu: Contact Your Physician, Go to Emergency Room Skin/Wound Care Infection Signs and Symptoms: Increased Redness, Foul Odor of Wound, Increased Drainage, Skin Itchy or Has a Rash, Increased Swelling, Temperature Above 101 F Wound Care Comment: Heating pad to shoulder or neck tonight for pain Bathing Instructions: Shower Stitches/Curtis/Dermabond Dis: Dermabond Ice Pack: Ice On and Off Site BETSY JIMENEZ DO Apr 05, 2019 11:58
[2019-04-05] MEDS ORDERED: HYDROmorphone 2 MG/ML VIAL (DILAUDID) IV ONE (12:15)
[2019-04-05] MEDS ORDERED: ONDANSETRON 4 MG/2 ML (SDV) Z0FRAN IVP PRN (12:15)
[2019-04-05] MEDS ORDERED: HYDROcodone/APAP 5 MG/325 MG (LORTAB) TAB ONE (14:01)
--- NOTE | 2019-04-05 17:24 | Diagnostic Imaging Report ---
EXAMINATION: Fluoroscopy. INDICATION: Abdominal pain. FINDINGS: Fluoroscopic assistance was provided for Dr. Soto during his laparoscopic cholecystectomy. 14 seconds of fluoroscopy time was utilized. 76 spot films of the right upper quadrant were obtained. There are laparoscopic devices in place. The common bile duct has been opacified via a cystic duct catheter. There is no defect within the duct to suggest choledocholithiasis. Contrast is seen extending into the small bowel. IMPRESSION: Fluoroscopic assistance was provided for Dr. Soto. Dictated by: Dictated on workstation # [id number]
[2019-04-05] MEDS ORDERED: ONDANSETRON 4 MG/2 ML (SDV) Z0FRAN IVP ONE (17:30)
[2019-04-05] MEDS ORDERED: HYDROcodone/APAP 5 MG/325 MG (LORTAB) TAB PO ONE (17:30)
--- NOTE | 2019-04-05 21:14 | OPERATIVE REPORT ---
DATE OF SERVICE: 04/05/2019 PREOPERATIVE DIAGNOSES: Cholecystitis, cholelithiasis. POSTOPERATIVE DIAGNOSES: Cholecystitis, cholelithiasis. PROCEDURE PERFORMED: Laparoscopic cholecystectomy with intraoperative cholangiogram. SURGEON: Dario Soto DO. SCOOPING MACHINE TENDER: Frank De Souza DO. ANESTHESIA: General endotracheal tube. SPECIMEN: Gallbladder and contents. BLOOD LOSS: Scant. FLUIDS: Per Anesthesia. POSTOPERATIVE CONDITION: Stable. INDICATION FOR PROCEDURE: The patient is a 43-year-old female who has been having right upper quadrant pain after fatty meals, had an ultrasound which showed stones and she was in pretty severe pain, wanted to get this removed as soon as possible. FINDINGS: The patient had adhesions of the gallbladder usually indicative of gallbladder attacks. PROCEDURE NOTE: After informed consent was obtained, the patient was brought to the operating room, placed on the operating table in supine position. She was sterilely prepped and draped in normal fashion. Local lidocaine was used to infiltrate the skin below the umbilicus. I made the incision with #11 blade, carried down through the skin into subcutaneous tissue and deepened down to subcutaneous tissue with Bovie electrocautery down to fascia. Fascia was incised with Bovie electrocautery, bluntly entered the abdomen, swept a finger around, placed #0 Vicryl [id number] suture, I then placed a 11 mm trocar port under direct visualization. Created pneumoperitoneum and then placed 3 more ports in normal fashion using local lidocaine, 11-blade used for stab incision and VersaStep system, all done under direct visualization, one subxiphoid and two in the right upper quadrant. The patient was then placed in a reverse Trendelenburg, slightly rotated to left, able to visualize the gallbladder and noted adhesions to the gallbladder usually indicative of previous gallbladder attacks. Able to grasp the gallbladder at the fundus and taken in the superior direction, started removing these adhesions with blunt dissection as well as Bovie electrocautery and then able to grasp down Shashi pouch and pulled in inferolateral direction, started dissecting out cystic duct and cystic artery. Cystic artery actually came across the top and right in front so had to get under this. Placed 1 clip distally 2 proximally and cut with Metzenbaum scissors to move this out of the way. I then started dissecting out cystic duct, able to get around the cystic duct and placed a clip distally and then cut correction through Metzenbaum scissors. Placed a cholangiogram catheter and then shot a cholangiogram, saw good spillage of dye down the cystic duct into the common bile duct, into the small intestine all as well as up into the common hepatic and right and left hepatics. At this point, I then removed the cholangiogram catheter, placed 2 clips proximally on the cystic duct, cut the cystic duct with Metzenbaum scissors and then started removing the gallbladder from the liver with L-hook cautery, which was completely removed, placed a bag in the abdomen, placed the gallbladder in the bag and then removed this through the infraumbilical incision. Placed the port back in the abdomen, copiously irrigated with normal saline. There was no bleeding from the bed of the liver, looked around just over the top of the omentum, I did not see any obvious pathology. At this point, I then placed the patient supine, removed all ports under direct visualization, allowed the pneumoperitoneum to escape as well as suctioned out and then closed the infraumbilical incision with #0 Vicryl suture previously placed. Copiously irrigated all incisions with normal saline, closed the 3 small 5 mm incisions with single interrupted 4-0 undyed Monocryl subcuticular stitch. I closed the infraumbilical incision with 3 interrupted 4-0 undyed Monocryl subcuticular stitch. Area was cleaned and dried. Dermabond placed as well as Band-Aids. The patient tolerated the procedure well. Sponge and needle count correct at the end of the case. Dr. De Souza assisted on this case making incisions, closing incisions, helping to identify anatomy and hold anatomy out of the way. Job ID: [id number] DocumentID: [id number] Dictated Date: 04/05/2019 11:55:54 Saddle Maker Date: 04/05/2019 21:13:17 Dictated By: DO CATHY DUNAWAY
== END 2019-04-05 16:15 | disposition home or self-care (01) ==
LOC: SDC 08:26
PROVIDERS: ATTEND Surgery
DX: K80.10 Calculus of gallbladder with chronic cholecystitis without obstruction (principal); Z11.2 Encounter for screening for other bacterial diseases; F41.9 Anxiety disorder, unspecified; K21.9 Gastro-esophageal reflux disease without esophagitis; Z87.820 Personal history of traumatic brain injury; Z91.041 Radiographic dye allergy status; Z88.2 Allergy status to sulfonamides; Z79.899 Other long term (current) drug therapy
CPT/HCPCS: 84703; 87081; 88304; 94664

== ENCOUNTER 2019-04-25 11:47 | Outpatient (CLI) | payer OTHER ==
[~2019-04-25] VITALS: Ht 162.6 cm; Wt 69.0 kg
[2019-04-25] MEDS ORDERED: D5 LR IV SOLUTION 1,000 ML IV ONE (12:30)
[2019-04-25] MEDS ORDERED: cefTRIAXone 1,000 MG/SWFI 10 ML IV PUSH IV ONE ×2 (12:45)
[2019-04-25] MEDS ORDERED: CATHETER FLUSH 10 ML SYR IV PRN (12:45)
[2019-04-25 15:10] VITALS: BP 112/80
== END 2019-04-25 15:10 | disposition home or self-care (01) ==
LOC: SDC 11:47
PROVIDERS: ATTEND Family Medicine
DX: E86.0 Dehydration (principal); J02.9 Acute pharyngitis, unspecified
CPT/HCPCS: 96365; 96374

== ENCOUNTER → 2019-11-20 | Outpatient (CLI) | payer OTHER ==
[~2019-11-20] MED LIST changes: -IBUP-2055 PO; +IBUP-2473 PO
--- NOTE | 2019-11-20 09:30 | Diagnostic Imaging Report ---
PROCEDURE: MRI pelvis without contrast. TECHNIQUE: Multiplanar, multisequence MRI of the pelvis was performed without contrast. INDICATION: Right groin and hip pain. No known injury. COMPARISON: None FINDINGS: No acute fracture or dislocation is seen in the pelvis. Alignment appears normal. No joint effusion is seen. There is no evidence of osteonecrosis. No focal osseous lesions are identified. The acetabular everton are not well evaluated on this [id number], but no paralabral cysts are seen. The iliopsoas tendons are intact. The gluteal tendons and hamstring tendons appear intact. There is no greater trochanteric or iliopsoas bursitis. No muscular atrophy is seen. No soft tissue fluid collections or masses are identified. No free fluid is seen in the pelvis. Imaged bowel loops are nondistended. No lymphadenopathy is seen. IMPRESSION: 1. No acute abnormality is seen in the pelvis. Dictated by: Dictated on workstation # [id number]
== END ==
LOC: RAD 07:45
PROVIDERS: ATTEND Family Medicine
DX: M25.551 Pain in right hip (principal); R10.31 Right lower quadrant pain
CPT/HCPCS: 72195

== ENCOUNTER → 2019-12-19 | Outpatient (CLI) | payer OTHER ==
--- NOTE | 2019-12-19 17:44 | Diagnostic Imaging Report ---
INDICATION: Cough. TIME OF EXAM: 03:15 p.m. Correlation is made with prior chest from 03/19/2017. FINDINGS: The heart size is normal. The pulmonary vascularity is unremarkable. The lungs are clear. No infiltrate, effusion or pneumothorax is detected. IMPRESSION: No acute cardiopulmonary process is detected. Dictated by: Dictated on workstation # [id number]
== END ==
LOC: RAD 14:56
PROVIDERS: ATTEND Family Medicine
DX: R05 Cough (principal)
CPT/HCPCS: 71046

== ENCOUNTER 2020-12-30 05:39 | Outpatient (RCR) | payer OTHER ==
[~2020-12-30] VITALS: Ht 162.6 cm; Wt 75.3 kg
[2020-12-30] MEDS ORDERED: NORT25CA PO (14:52)
[2020-12-30] MEDS ORDERED: DIVA-74 PO (14:52)
[2020-12-30] MEDS ORDERED: RIZA10TA94 PO (14:52)
[2020-12-30] MEDS ORDERED: GALC120S SQ (14:52)
[2020-12-30] MEDS ORDERED: MIRT15TA6 PO (14:52)
== END 2020-12-31 10:29 | disposition home or self-care (01) ==
LOC: PREOP 05:39
PROVIDERS: ATTEND Surgery
DX: Z01.818 Encounter for other preprocedural examination (principal)

== ENCOUNTER 2021-01-06 07:00 | Day surgery (SDC) | payer OTHER ==
[~2021-01-06] VITALS: Ht 162.6 cm; Wt 75.3 kg
[2021-01-06] VITALS (7 sets, daily range): BP systolic 98–134; BP diastolic 57–93
[~2021-01-06 07:00] MED LIST changes: +DIVA-74 PO; +GALC120S SQ; +MIRT-68 PO; +NORT25CA PO; +RIZA10TA94 PO
[2021-01-06] MEDS ORDERED: LACTATED RINGERS 1,000 ML IV ONE (07:09)
[2021-01-06] MEDS ORDERED: LACTATED RINGERS 1,000 ML IV STA (07:09)
[2021-01-06] MEDS ORDERED: HURRICAINE EXT TUBE (BENZOCAINE) XX PRN (07:15)
[2021-01-06] MEDS ORDERED: proPOfol 200 MG/20 ML (DIPRIVAN) VIAL IV ONE (07:52)
[2021-01-06] MEDS ORDERED: MIDAZOLAM 2 MG/2 ML (VERSED) VIAL ONE (07:54)
--- NOTE | 2021-01-06 08:16 | Progress Note-Pre Operative ---
Pre-Operative Progress Note H&P Reviewed The H&P was reviewed, patient examined and no changes noted. Time Seen by Provider: 08:11 Date H&P Reviewed: Jan 06, 2021 Time H&P Reviewed: 08:11 Pre-Operative Diagnosis: Dysphagia BETSY JIMENEZ DO Jan 06, 2021 08:16
--- NOTE | 2021-01-06 08:29 | Endoscopy Discharge Instruct ---
Endo Procedure/Findings Findings 1.: Gastritis 2.: Hiatal Hernia Discharge Instructions - Activity: You might feel a little sleepy until tomorrow. This is due to the medicine you received to relax you. Until tomorrow, you should: NOT drive a car, operate machinery or power tools. NOT drink any alcoholic beverages. NOT make any important decisions or sign importortant papers. Do not return to work until tomorrow, unless otherwise instructed. Resume previous activities tomorrow. Diet: Start by taking liquids. If you tolerate liquids, advance to solid food. 1.: EGD in 3 years Notify Physician - If you experience excessive bleeding, unusual abdominal pain, fever, or chest pain, contact your doctor immediately. BETSY JIMENEZ DO Jan 06, 2021 08:29
--- NOTE | 2021-01-06 08:29 | Progress Note-Post Operative ---
Post-Operative Progess Note Surgeon (s)/Delivery Room Clerk (s) Surgeon BETSY JIMENEZ DO Delivery Room Clerk: none Pre-Operative Diagnosis Dysphagia Post-Operative Diagnosis Gastritis Hiatal Hernia Procedure & Operative Findings Date of Procedure 01/06/21 Procedure Performed/Findings PROCEDURE NOTE: After informed consent was obtained, the patient was brought to the endoscopy suite, placed in bed in left lateral decubitus position. She was administered IV sedation by the RAISED PRINTER who then monitored her vitals the entire time, heart rate, blood pressure and pulse ox and the scope was inserted down the mouth through the esophagus into the stomach. Pushed into the stomach, and noted some mild gastritis (took a pic) pushed past the antrum into the duodenum. Duodenum looked good. Pulled back and did a biopsy of antrum, then retroflexed the scope, saw a small hiatal hernia, took a picture of this and then pulled the scope into the GE junction, took another picture of the hiatal hernia and then did a biopsy of the GE junction. Pushed the scope back into the stomach, suctioned all the air out of the stomach and then pulled the scope up the esophagus, took some pictures in the esophagus. There was nothing that looked like it could cause dysphagia; pulled the scope up the esophagus and out the mouth. The patient tolerated the procedure, and she was recovered in endoscopy suite. Anesthesia Type IV sedation by RAISED PRINTER Estimated Blood Loss Estimated blood loss (mL): scant Specimens/Packing Specimens Removed antral bx body of stomach bx GE jxn bx BETSY JIMENEZ DO Jan 06, 2021 08:29
--- NOTE | 2021-01-06 11:11 | Anesthesia-General Post-Op ---
MAC Patient Condition Mental Status/LOC: Same as Preop Cardiovascular: Satisfactory Nausea/Vomiting: Absent Respiratory: Satisfactory Pain: Controlled Complications: Absent Post Op Complications Complications None Follow Up Care/Instructions Patient Instructions None needed. Anesthesiology Discharge Order Discharge Order Patient is doing well, no complaints, stable vital signs, no apparent adverse anesthesia problems. No complications reported per nursing. CHAPARRO MELENDREZ CRNA Jan 06, 2021 11:11
== END 2021-01-06 09:14 | disposition home or self-care (01) ==
LOC: ENDO 07:00
PROVIDERS: ATTEND Surgery
DX: K29.70 Gastritis, unspecified, without bleeding (principal); K21.9 Gastro-esophageal reflux disease without esophagitis; K44.9 Diaphragmatic hernia without obstruction or gangrene; R51.9 Headache, unspecified; R03.0 Elevated blood-pressure reading, without diagnosis of hypertension; Z90.49 Acquired absence of other specified parts of digestive tract; Z88.2 Allergy status to sulfonamides; Z79.899 Other long term (current) drug therapy; Z79.2 Long term (current) use of antibiotics
CPT/HCPCS: 84703

== ENCOUNTER → 2021-10-20 | Outpatient (CLI) | payer OTHER ==
[~2021-10-20] MED LIST changes: -POTA99TA21 PO; +POTA99TA26 PO
--- NOTE | 2021-10-20 13:21 | Diagnostic Imaging Report ---
INDICATION: Left shoulder and clavicular pain. FINDINGS: 3 views. Glenohumeral joints in good alignment with good preservation of joint space. AC joint shows good alignment without hypertrophic change. There are no fractures demonstrated. No soft tissue calcifications are seen about the shoulder. IMPRESSION: Normal left shoulder. Dictated by: Dictated on workstation # [id number]
== END ==
LOC: RAD 09:36
PROVIDERS: ATTEND Family Medicine
DX: M25.512 Pain in left shoulder (principal)
CPT/HCPCS: 73030

== ENCOUNTER → 2022-05-28 | Outpatient (CLI) | payer OTHER ==
--- NOTE | 2022-05-28 09:10 | Diagnostic Imaging Report ---
PROCEDURE: Pelvic comp/transvaginal sonogram. TECHNIQUE: Complete transabdominal and transvaginal pelvic ultrasound was performed. In addition, limited pelvic Doppler was performed. INDICATION: Abnormal uterine bleeding. Uterus is retroverted measuring 6.9 x 4.5 x 5.3 cm. Several cervical nabothian cysts are noted. The endometrium is significantly thickened measuring up to 24 mm. No abnormal vascularity to the endometrium is seen. No myometrial mass is identified. Left ovary cannot be visualized. Right ovary measures 3.4 x 2.0 x 3.7 cm. Right ovary contains several cysts, largest approximately 3.1 x 1.6 x 2.3 cm. There is blood flow to the right ovary. No free fluid is seen. IMPRESSION: 1. Abnormally thickened endometrium up to 24 mm. While this could be owing to hyperplasia, endometrial neoplasm cannot be entirely excluded. 2. A 3.1 cm right ovarian cyst. Dictated by: Dictated on workstation # [id number]
== END ==
LOC: RAD 07:45
PROVIDERS: ATTEND Family Medicine
DX: N83.201 Unspecified ovarian cyst, right side (principal)
CPT/HCPCS: 76830; 76856